=== PATIENT | male | born 1935 | race Caucasian/White ===

== ENCOUNTER 2017-06-06 16:04 | Inpatient (IN) ==
[2017-06-06] MEDS ORDERED: METOCLOPRAMIDE 10 MG/2 ML VIAL IV STA (16:18)
[2017-06-06] MEDS ORDERED: ONDANSETRON 4 MG/2 ML VIAL IV STA (16:18)
[2017-06-06] MEDS ORDERED: SODIUM CHLORIDE 0.9% 500 ML IV STA (16:18)
[2017-06-06] MEDS ORDERED: PANTOPRAZOLE 40 MG VIAL IV STA (16:18)
[2017-06-06] MEDS ORDERED: LOPERAMIDE 2 MG CAPSULE PO STA (16:18)
[2017-06-06] MEDS ORDERED: PANTOPRAZOLE 40 MG VIAL IV ONE (16:23)
[2017-06-06] MEDS ORDERED: METOCLOPRAMIDE 10 MG/2 ML VIAL ONE (16:24)
[2017-06-06] MEDS ORDERED: ONDANSETRON 4 MG/2 ML VIAL ONE (16:24)
[2017-06-06] MEDS ORDERED: DICYCLOMINE 20 MG/2 ML AMP IM ONE ×2 (16:25→18:24)
[2017-06-06 16:51] LABS: Basophils # 0.1 10*3/uL (0.0-0.2); Basophils % 0.4 % (0.0-0.8); Eosinophils # 0.1 10*3/uL (0.0-0.87); Eosinophils % 1.2 % (0.00-10.9); Hematocrit 26.2 VOL% (42.0-52.0); Hemoglobin 9.1 GM/DL (14.0-18.0); Immature Granulocytes % 0.4 %; Immature Granulocytes Absolute 0.05 #; Lymphocytes # 1.3 10*3/uL (1.4-4.0); Lymphocytes % 11.5 % (21.2-54.2); Mean Corpuscular HGB Conc 34.7 GM/DL (32-36); Mean Corpuscular Hemoglobin 33 PG (27-34); Mean Corpuscular Volume 93.9 FL (87-102); Mean Platelet Volume 9.7 FL (9.6-12.0); Monocytes # 0.9 10*3/uL (0.11-0.8); Monocytes % 8.2 % (1.7-12.7); Neutrophils # 8.9 10*3/uL (1.4-7.4); Neutrophils % 78.3 % (38.7-73.9); Platelet Count 282 T/CUMM (130-400); Red Blood Count 2.79 MC/CUMM (3.8-5.5); White Blood Count 11.3 T/CUMM (4-12)
[2017-06-06] MEDS ORDERED: LOPERAMIDE 2 MG CAPSULE ONE (16:54)
[2017-06-06 17:00] LABS: % Iron Saturation 5.9 % (18-50)
[2017-06-06 17:05] LABS: Alanine Aminotransferase 16 U/L (16-61); Albumin 3.1 G/DL (3.4-5.0); Alkaline Phosphatase 50 U/L (45-117); Amylase 57 U/L (25-115); Aspartate Amino Transferase 22 U/L (0-37); Blood Urea Nitrogen 36 MG/DL (7-18); Glucose 129 MG/DL (74-106); Osmolality,Calculated 288.4 MOS/KG (273-304); Sodium 140 MMOL/L (136-145); Total Protein 6.5 G/DL (6.4-8.3); Troponin I Only 0.023 NG/ML (0.00-0.045)
[2017-06-06] MEDS ORDERED: ACETAMINOPHEN 325 MG TABLET PO PRN (20:21)
[2017-06-06] MEDS ORDERED: ZALEPLON 5 MG CAPSULE PO PRN (20:21)
[2017-06-06] MEDS ORDERED: metroNIDAZOLE INJ 500 MG in PREMIX 1 EACH IV SCH (21:00)
[2017-06-06] MEDS ORDERED: POTASSIUM CHLORIDE 20 MEQ TABLET PO SCH (21:00)
[2017-06-07] MEDS: ASPIRIN EC 81 MG TABLET PO SCH ×3 (00:45→21:38)
[2017-06-07] MEDS: POTASSIUM CHLORIDE 20 MEQ TABLET PO PRN ×4 (00:45→09:20)
[2017-06-07] MEDS: CIPROFLOXACIN INJ 400 MG in PREMIX 1 EACH IV SCH ×3 (00:45→21:41)
[2017-06-07] MEDS: ONDANSETRON 4 MG/2 ML VIAL IV PRN ×2 (00:45→08:34)
[2017-06-07] MEDS: SODIUM CHLORIDE 0.45% 1,000 ML IV SCH (00:45)
[2017-06-07] MEDS: POTASSIUM CHLORIDE 10 MEQ TABLET PO SCH ×3 (00:47→21:45)
[2017-06-07] MEDS: ALPRAZolam 0.5 MG TABLET PO SCH ×3 (00:47→21:38)
[2017-06-07] MEDS: lamoTRIgine 25 MG TABLET PO SCH ×2 (00:47→21:38)
[2017-06-07] MEDS: RIVAROXABAN 20 MG TABLET PO SCH ×2 (00:47→00:54)
[2017-06-07] MEDS: AMIODARONE 200 MG TABLET PO SCH ×3 (00:47→21:41)
[2017-06-07] MEDS: metroNIDAZOLE INJ 500 MG in PREMIX 1 EACH IV SCH ×3 (03:21→18:04)
[2017-06-07 06:08] LABS: Basophils # 0.1 10*3/uL (0.0-0.2); Basophils % 0.4 % (0.0-0.8); Eosinophils # 0.1 10*3/uL (0.0-0.87); Eosinophils % 0.4 % (0.00-10.9); Hematocrit 24.2 VOL% (42.0-52.0); Hemoglobin 8.4 GM/DL (14.0-18.0); Immature Granulocytes % 0.4 %; Immature Granulocytes Absolute 0.06 #; Lymphocytes # 1.8 10*3/uL (1.4-4.0); Lymphocytes % 12.6 % (21.2-54.2); Mean Corpuscular HGB Conc 34.7 GM/DL (32-36); Mean Corpuscular Hemoglobin 33 PG (27-34); Mean Corpuscular Volume 95.3 FL (87-102); Mean Platelet Volume 9.6 FL (9.6-12.0); Monocytes # 1.3 10*3/uL (0.11-0.8); Monocytes % 9.3 % (1.7-12.7); Neutrophils % 76.9 % (38.7-73.9); Platelet Count 255 T/CUMM (130-400); Red Blood Count 2.54 MC/CUMM (3.8-5.5); White Blood Count 14.3 T/CUMM (4-12)
[2017-06-07 06:48] LABS: Albumin 2.8 G/DL (3.4-5.0); Calcium 9.1 MG/DL (8.5-10.1); Osmolality,Calculated 287.3 MOS/KG (273-304); Potassium 3.2 MMOL/L (3.5-5.1); Thyroid Stimulating Hormone 2.35 uIU/ml (0.358-3.74); Total Protein 5.6 G/DL (6.4-8.3)
[2017-06-07 07:32] LABS: Folate 22.8 NG/ML (5.4-24.0)
[2017-06-07] MEDS: PANTOPRAZOLE 40 MG TABLET PO SCH (09:19)
[2017-06-07] MEDS: VENLAFAXINE XR 75 MG CAPSULE PO SCH (09:19)
[2017-06-07] MEDS: METOPROLOL SUCCINATE XL 100 MG TABLET PO SCH (09:20)
[2017-06-07 11:13] LABS: Apearance,Urine CLEAR (Clear); Bilirubin,Urine Negative (Negative); Blood, Urine Negative (Negative); Glucose,Urine (UA) Negative (Negative); Ketones,Urine Negative (Negative); Nitrite,Urine Negative (Negative); Protein,Urine Negative; RBC,Urine 1 /HPF (0-4); Urine Color Yellow (Yellow); Urine Specific Gravity 1.031 (1.001-1.035); Urine Urobilinogen < 2.0 EU/DL (0.2-1.0); WBC,Urine 1 /HPF (0-6)
[2017-06-07] MEDS ORDERED: ERGOCALCIFEROL 50,000 UNIT CAPSULE PO SCH (12:00)
[2017-06-07] MEDS: FUROSEMIDE 80 MG TABLET PO SCH (15:36)
[2017-06-07] MEDS: MULTIVITAMIN (CENTRUM) TABLET PO SCH (21:41)
[2017-06-07] MEDS: PRAVASTATIN 40 MG TABLET PO SCH (21:41)
[2017-06-08] MEDS: metroNIDAZOLE INJ 500 MG in PREMIX 1 EACH IV SCH ×3 (03:06→21:13)
[2017-06-08 07:20] LABS: Calcium 8.5 MG/DL (8.5-10.1); Osmolality,Calculated 287.1 MOS/KG (273-304); Potassium 3.9 MMOL/L (3.5-5.1); Risk Ratio 3.22; VLDL CHOLESTEROL 20.2 MG/DL
[2017-06-08 07:28] LABS: Basophils # 0.1 10*3/uL (0.0-0.2); Basophils % 0.6 % (0.0-0.8); Eosinophils # 0.2 10*3/uL (0.0-0.87); Eosinophils % 1.9 % (0.00-10.9); Hematocrit 23.1 VOL% (42.0-52.0); Hemoglobin 7.5 GM/DL (14.0-18.0); Immature Granulocytes % 0.5 %; Immature Granulocytes Absolute 0.06 #; Lymphocytes # 1.4 10*3/uL (1.4-4.0); Lymphocytes % 11.3 % (21.2-54.2); Mean Corpuscular HGB Conc 32.5 GM/DL (32-36); Mean Corpuscular Hemoglobin 32 PG (27-34); Mean Corpuscular Volume 99.6 FL (87-102); Monocytes # 1.2 10*3/uL (0.11-0.8); Monocytes % 9.7 % (1.7-12.7); Neutrophils # 9.4 10*3/uL (1.4-7.4); Platelet Count 190 T/CUMM (130-400); Red Blood Count 2.32 MC/CUMM (3.8-5.5); Red Cell Distribution Width 17.9 % (9.3-17.3); White Blood Count 12.4 T/CUMM (4-12)
[2017-06-08] MEDS ORDERED: SODIUM CHLORIDE 0.9% 1,000 ML IV PRN (07:57)
[2017-06-08] MEDS: FUROSEMIDE 80 MG TABLET PO SCH ×2 (08:00→17:22)
[2017-06-08] MEDS: VENLAFAXINE XR 75 MG CAPSULE PO SCH (09:00)
[2017-06-08] MEDS ORDERED: Fluticasone/Vilanterol [Breo Ellipta 100-25 Mcg Inh] 1 PUFF INH SCH (09:00)
[2017-06-08] MEDS: ASCORBIC ACID 500 MG TABLET PO SCH (09:00)
[2017-06-08] MEDS: POTASSIUM CHLORIDE 10 MEQ TABLET PO SCH ×2 (09:00→21:13)
[2017-06-08] MEDS: ALPRAZolam 0.5 MG TABLET PO SCH ×2 (09:00→21:12)
[2017-06-08] MEDS: AMIODARONE 200 MG TABLET PO SCH ×2 (09:00→21:13)
[2017-06-08] MEDS: FEXOFENADINE 180 MG TABLET PO SCH (09:00)
[2017-06-08] MEDS: METOPROLOL SUCCINATE XL 100 MG TABLET PO SCH (09:00)
[2017-06-08] MEDS: PANTOPRAZOLE 40 MG TABLET PO SCH ×2 (09:00→21:12)
[2017-06-08] MEDS ORDERED: PROPOFOL 200 MG/20 ML VIAL IV ONE (12:01)
[2017-06-08] MEDS ORDERED: LIDOCAINE 2% 5 ML VIAL ONE (12:01)
[2017-06-08] MEDS ORDERED: FUROSEMIDE 40 MG/4 ML VIAL IV ONE (14:01)
[2017-06-08] MEDS: CIPROFLOXACIN INJ 400 MG in PREMIX 1 EACH IV SCH (16:30)
[2017-06-08] MEDS ORDERED: ALUMINUM/MAGNES/SIMETH MAX STR 30 ML UDCUP PO PRN (17:05)
[2017-06-08] MEDS: SODIUM CHLORIDE 0.45% 1,000 ML IV SCH ×2 (17:33→21:11)
[2017-06-08] MEDS: MULTIVITAMIN (CENTRUM) TABLET PO SCH (21:12)
[2017-06-08] MEDS: lamoTRIgine 25 MG TABLET PO SCH (21:12)
[2017-06-08] MEDS: PRAVASTATIN 40 MG TABLET PO SCH (21:12)
[2017-06-09] MEDS: CIPROFLOXACIN INJ 400 MG in PREMIX 1 EACH IV SCH (02:03)
[2017-06-09 05:33] LABS: Basophils # 0.1 10*3/uL (0.0-0.2); Basophils % 0.8 % (0.0-0.8); Eosinophils # 0.3 10*3/uL (0.0-0.87); Eosinophils % 3.7 % (0.00-10.9); Hematocrit 26.6 VOL% (42.0-52.0); Hemoglobin 9.1 GM/DL (14.0-18.0); Immature Granulocytes % 0.3 %; Immature Granulocytes Absolute 0.02 #; Lymphocytes # 1.7 10*3/uL (1.4-4.0); Lymphocytes % 22.2 % (21.2-54.2); Mean Corpuscular HGB Conc 34.2 GM/DL (32-36); Mean Corpuscular Hemoglobin 32 PG (27-34); Mean Corpuscular Volume 93.3 FL (87-102); Mean Platelet Volume 9.8 FL (9.6-12.0); Monocytes % 13.7 % (1.7-12.7); Neutrophils # 4.5 10*3/uL (1.4-7.4); Neutrophils % 59.3 % (38.7-73.9); Platelet Count 189 T/CUMM (130-400); Red Blood Count 2.85 MC/CUMM (3.8-5.5); Red Cell Distribution Width 18.9 % (9.3-17.3); White Blood Count 7.5 T/CUMM (4-12)
[2017-06-09] MEDS: metroNIDAZOLE INJ 500 MG in PREMIX 1 EACH IV SCH (05:35)
[2017-06-09 05:56] LABS: Calcium 8.1 MG/DL (8.5-10.1); Potassium 3.3 MMOL/L (3.5-5.1)
[2017-06-09 05:57] LABS: Calcium 8.2 MG/DL (8.5-10.1); Potassium 3.3 MMOL/L (3.5-5.1)
[2017-06-09] MEDS: VENLAFAXINE XR 75 MG CAPSULE PO SCH (08:54)
[2017-06-09] MEDS: FEXOFENADINE 180 MG TABLET PO SCH (08:55)
[2017-06-09] MEDS: ALPRAZolam 0.5 MG TABLET PO SCH (08:55)
[2017-06-09] MEDS: PANTOPRAZOLE 40 MG TABLET PO SCH (08:55)
[2017-06-09] MEDS: POTASSIUM CHLORIDE 10 MEQ TABLET PO SCH (08:55)
[2017-06-09] MEDS: AMIODARONE 200 MG TABLET PO SCH (08:56)
[2017-06-09] MEDS: ASCORBIC ACID 500 MG TABLET PO SCH (08:56)
[2017-06-09] MEDS: METOPROLOL SUCCINATE XL 100 MG TABLET PO SCH (08:56)
[2017-06-09] MEDS: FUROSEMIDE 80 MG TABLET PO SCH (08:56)
[2017-06-09 11:32] VITALS: BP 108/60
[2017-06-09] MEDS ORDERED: POTASSIUM CHLORIDE 20 MEQ/15 ML UDCUP PO SCH (21:00)
== END 2017-06-09 13:00 | disposition home or self-care (01) | DRG 392 ==
LOC: EDUNIT# → N.ED 16:04 → N.EDINP 20:21 → SUATTDRO 20:21 → N.5E 21:00
PROVIDERS: ADMIT Hospitalist

== ENCOUNTER 2017-09-16 21:10 | Inpatient (IN) ==
[2017-09-20 08:05] VITALS: BP 118/50
== END 2017-09-20 10:56 | disposition swing bed (61) | DRG 682 ==
LOC: N.2E → SUATTDRO 09-17 12:56
PROVIDERS: ADMIT Internal Medicine Nephrology; ATTEND Internal Medicine